=== PATIENT | male | born 1985 | race African-American/Black ===

== ENCOUNTER 2016-12-04 19:47 | Emergency (ER) | payer OTHER ==
[~2016-12-04 19:47] MED LIST: FLEXERIL10 MG PO; MOTRIN 600 MG600 MG PO
[2016-12-04 20:05] VITALS: BP 138/83
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
[2016-12-04] MEDS ORDERED: CYCLOBENZAPRINE5 M2 PO (21:31)
[2016-12-04] MEDS ORDERED: IBUPROFEN800 M1 PO (21:31)
== END 2016-12-04 21:56 ==
LOC: ERH 19:47
DX: S39.012A Strain of muscle, fascia and tendon of lower back, initial encounter (principal); V43.52XA Car driver injured in collision with other type car in traffic accident, initial encounter; Y92.9 Unspecified place or not applicable